=== PATIENT | male | born 1955 | race Caucasian/White ===

== ENCOUNTER 2023-07-16 10:42 | Inpatient (IN) | payer BC, MEDICARE ==
[2023-07-16] MEDS: Acetaminophen/HYDROcodone 325-5 MG Tab PO ONE (13:40)
[2023-07-16] MEDS ORDERED: hydrOXYzine HCl 25 MG Tab PO PRN (16:47)
[2023-07-16] MEDS ORDERED: Cyclobenzaprine 10 MG Tab PO PRN (16:47)
[2023-07-16] MEDS ORDERED: Calcium Carbonate 500 MG Tab.Chew PO PRN (16:47)
[2023-07-16] MEDS ORDERED: Ondansetron 4 MG Tab.DIS PO PRN (16:47)
[2023-07-16] MEDS: oxyCODONE 5 MG Tab PO PRN (17:37)
[2023-07-16] MEDS: Amoxicillin/Clavulanate K 875-125 MG Tab PO ONE (17:37)
[2023-07-16] MEDS: Gabapentin 300 MG Cap PO SCH (17:38)
[2023-07-16] MEDS: Bisacodyl 5 MG Tab PO PRN (17:38)
[2023-07-16] MEDS: traZODone 50 MG Tab PO SCH (19:49)
[2023-07-16] MEDS: Acetaminophen 325 MG Tab PO SCH (21:49)
[2023-07-17] MEDS: Fish Oil/Omega-3 Fatty Acids 1 Gm Cap PO SCH (07:15)
[2023-07-17] MEDS: Multivitamin Tab PO SCH (07:15)
[2023-07-17] MEDS: Rosuvastatin 10 MG Tab PO SCH (07:16)
[2023-07-17] MEDS: Lactobacillus Rhamnosus GG (Probiotic) Cap PO SCH (07:16)
[2023-07-17] MEDS: Omeprazole 20 MG Cap.CR PO SCH (07:17)
[2023-07-17] MEDS: Magnesium Oxide 400 MG Tab PO SCH (07:17)
[2023-07-17] MEDS: Metoprolol Succinate 25 MG Tab.ER PO SCH (07:17)
[2023-07-17] MEDS: Ascorbic Acid 500 MG Tab PO SCH (07:17)
[2023-07-17] MEDS: Cholecalciferol (Vitamin D3) 25 MCG Tab PO SCH (07:18)
[2023-07-17] MEDS: Cyanocobalamin (Vitamin B12) 1,000 MCG Tab PO SCH (07:18)
[2023-07-17] MEDS: Non-Formulary Medication 1 Each (Clotrimazole/Betameth Dip/Zinc [Dermacinrx Therazole Pak] TOP SCH (08:37)
[2023-07-17] MEDS ORDERED: Albuterol/Ipratropium 3.0-0.5 MG/3 ML Neb Soln INH PRN (08:38)
[2023-07-17] MEDS: Amoxicillin/Clavulanate K 875-125 MG Tab PO SCH (08:47)
[2023-07-17] MEDS: Non-Formulary Medication 1 Each (Budesonide/Glycopyr/Formoterol [Breztri Aerosphere Inhale IH SCH (09:53)
[2023-07-17] MEDS: Tiotropium Bromide 4 GM Inhalation Spray (2.5mcg/1 dose; 10 doses) INH SCH (09:56)
[2023-07-17] MEDS: Formoterol/Mometasone 200-5 MCG 8.8 GM Inhaler IH SCH (09:56)
[2023-07-17] MEDS: Acetaminophen/HYDROcodone 325-5 MG Tab PO PRN (13:16)
[2023-07-18] MEDS: Aspirin 81 MG Tab.Chew PO SCH (20:46)
[2023-07-19] MEDS: Polyethylene Glycol 3350 Powder 17 GM Packet PO PRN (12:33)
[2023-07-19] MEDS: Melatonin 3 MG Tab PO PRN (21:28)
[2023-07-19] MEDS: Sennosides/Docusate Sodium 50-8.6 MG Tab PO PRN (21:28)
== END 2023-07-21 17:40 | disposition home health service (06) | DRG 862 ==
LOC: LL.MS 13:01
PROVIDERS: ADMIT Physician Assistant; ATTEND Physician Assistant
DX: Z48.3 Aftercare following surgery for neoplasm (principal); T81.30XA Disruption of wound, unspecified, initial encounter; J43.9 Emphysema, unspecified; M19.90 Unspecified osteoarthritis, unspecified site; R53.81 Other malaise; G89.18 Other acute postprocedural pain; F17.210 Nicotine dependence, cigarettes, uncomplicated; Z90.49 Acquired absence of other specified parts of digestive tract; Z88.8 Allergy status to other drugs, medicaments and biological substances; Z79.899 Other long term (current) drug therapy
CPT/HCPCS: 97110-GO; 97110-GP; 97162-GP; 97165-GO; 99306; 99307; 99316; A9270-GY